=== PATIENT | female | born 1975 | race Caucasian/White ===

== ENCOUNTER 2016-08-26 21:53 | Emergency (ER) | payer BC ==
--- NOTE | 2016-08-26 22:01 | UCPHY ---
H & P Patient Type: New HPI/ROS: CHIEF COMPLAINT: Right ear pain. HISTORY OF PRESENT ILLNESS: The patient is a 40-year-old female who presents with intense right ear pain for the last 2 hours. The pain radiates down to her jaw. It was preceded by the feeling of her ear being plugged. She was not sneezing or blowing her nose at onset. She has had rhinorrhea for the past few days and her family has all been sick with colds. She denies sore throat, shortness of breath, or other complaints. REVIEW OF SYSTEMS Constitutional: No fever, no chills. Eyes: No discharge. ENT: No sore throat. Respiratory: No cough, no shortness of breath, no wheezing. Skin: No rashes. Past Medical/Surgical History: Ear infections. Social History: Mother. Physical Exam: General Appearance: Alert, no distress. Afebrile. Normal phonation. No respiratory distress. Eyes: Pupils equal and round no pallor or injection. No icterus ENT, Mouth: Mucous membranes moist. Pharynx not erythematous and without exudate. Left TMs clear, translucent, with light reflex. The right TM is red and dull and erythematous. Neck: No adenopathy. Supple. No JVD. Trachea in midline. Skin: Warm and dry, no rashes. Constitutional: Initial Vital Signs Temperature (C) 36.8 C 08/26/16 22:03 Heart Rate 112 H 08/26/16 22:03 Respiratory Rate 18 08/26/16 22:03 Blood Pressure 120/83 H 08/26/16 22:03 O2 Sat (%) 96 08/26/16 22:03 O2 Delivery Mode Room Air Allergies/Adverse Reactions: No Known Allergies Allergy (Unverified 08/26/16 22:03) Home Medications: Medication Instructions Recorded Amoxicillin 500 mg PO TID 10 Days 08/26/16 Medical Decision Making - Data Points Medications Given: Discontinued Medications Amoxicillin (Amoxil Chewable 250 Mg Prepack#4) 1 btl TAKEHOME EDNOW ONE PRN Reason: Protocol Stop: 08/26/16 22:16 Last Admin: 08/26/16 22:25 Dose: 1 btl Departure - Departure Disposition: Home, Routine, Self-Care Clinical Impression: Right otitis media Qualifiers: Otitis media type: suppurative Chronicity: acute Recurrence: not specified as recurrent Spontaneous tympanic membrane rupture: without spontaneous rupture Qualified Code(s): H66.001 - Acute suppurative otitis media without spontaneous rupture of ear drum, right ear Condition: Good Instructions: Amoxicillin (By mouth), Otitis Media (ED) Additional Instructions: Take Amoxicillin as prescribed. Take 650mg Tylenol every 6 hours and 400mg Ibuprofen every 6 hours as needed for pain and/or fever. Follow up with your PCP next week if symptoms are not improving. Return for any serious worsening of condition. Referrals: JUAN RAMON EL [Primary Care Provider] - As per Instructions Prescriptions: Amoxicillin 500 mg PO TID 10 Days - PQRS PQRS Measurement: Not applicable. Report Scribed for: Jeremías Bowling Report Scribed by: Kumar Khan Date of Report: 08/26/16 Time of Report: 22:01 Physician Review and Approval Statement: 08/26/16 22:01 Portions of this note were transcribed by a medical art therapist. I personally performed a history, physical exam, medical decision making, and confirmed accuracy of information the transcribed note.
[2016-08-26 22:04] VITALS: BP 120/83; PULSE 112; RESP 18; TEMP 98.2; O2SAT 96
[2016-08-26] MEDS ORDERED: AMOXICILLIN 250 MG PREPACK#4 BTL TAKEHOME ONE (22:15)
== END 2016-08-26 22:27 | disposition home or self-care (01) ==
LOC: CED 21:53
DX: H66.001 Acute suppurative otitis media without spontaneous rupture of ear drum, right ear (principal)
CPT/HCPCS: G0463-PO